=== PATIENT | male | born 1970 | race Caucasian/White ===

== ENCOUNTER 2016-04-23 | Emergency (ER) | payer BC, OTHER | END 2016-04-23 06:12 | disposition home or self-care (01) | DX: I10 Essential (primary) hypertension (principal) ==

== ENCOUNTER 2016-04-28 15:44 | Emergency (ER) | payer OTHER ==
[2016-04-28] MEDS ORDERED: MAG HYDROX/AL HYDROX/SIMETH 30 ML UDC PO STA (16:44)
[2016-04-28] MEDS ORDERED: LIDOCAINE VISCOUS 2% 15 ML UDC MM STA (16:44)
[2016-04-28] MEDS ORDERED: SUCRALFATE 1 GM/10 ML UDC PO STA (16:44)
[2016-04-28] MEDS ORDERED: MAG HYDROX/AL HYDROX/SIMETH 30 ML UDC ONE (16:56)
[2016-04-28] MEDS ORDERED: SUCRALFATE 1 GM/10 ML UDC ONE (16:56)
[2016-04-28] MEDS ORDERED: LIDOCAINE VISCOUS 2% 15 ML UDC MM ONE (16:56)
== END 2016-04-28 17:28 | disposition home or self-care (01) ==
DX: R07.9 Chest pain, unspecified (principal); I10 Essential (primary) hypertension
CPT/HCPCS: 36415; 71010; 80053; 83690; 84484; 85025; 93005; 93010; 99283; 99284; A9270

== ENCOUNTER 2016-05-31 08:12 | Outpatient (CLI) | payer OTHER | END 2016-05-31 08:13 | disposition home or self-care (01) | DX: Q89.2 Congenital malformations of other endocrine glands (principal) ==

== ENCOUNTER 2017-11-25 06:05 | Emergency (ER) | payer OTHER ==
[2017-11-25] MEDS ORDERED: diphenhydrAMINE 25 MG CAPSULE PO STA (06:15)
--- NOTE | 2017-11-25 06:22 | ED Physician Documentation ---
History of Present Illness - Stated complaint Stated Complaint: ALLERGIC REACTION - Chief complaint Chief Complaint: Allergic Rx - History obtained from History obtained from: Patient - History of Present Illness Timing: Today - Additonal information Additional information: Patient is a 47 year old male with no significant past medical history who is presenting to the emergency department for palpitations. patient states that last night he took a niacin containing supplement to try to help him sleep. patient states that in the middle of the night he felt his heart racing. Patient states it went away but he had another episode this morning in the shower. Currently patient is asymptomatic. Review of Systems Ten Systems: 10 systems reviewed and negative Constitutional: denies: Fever, Chills Cardiac: reports: Palpitations. denies: Chest pain / pressure, Pedal edema, Calf pain Respiratory: denies: Dyspnea, Cough, Wheezing GI: denies: Nausea, Vomiting PD PAST MEDICAL HISTORY - Past Medical History Cardiovascular: Hypertension, High cholesterol Respiratory: Sleep apnea, CPAP use Endocrine/Autoimmune: HyPOthyroidism - Past Surgical History Past Surgical History: Yes Ortho: ACL reconstruction, Arthroscopic surgery HEENT: Tonsil/Adenoidectomy - Present Medications Home Medications: Ambulatory Orders Medication Instructions Recorded Confirmed Levothyroxine Sodium [Synthroid] 100 mcg PO DAILY 07/11/13 04/23/16 Testosterone 1 packet TOP DAILY 05/18/15 05/18/15 Hydrochlorothiazide 12.5 mg PO DAILY 04/23/16 04/23/16 Losartan [Cozaar] 75 mg PO DAILY 04/23/16 04/23/16 Magnesium Citrate 200 mg PO DAILY 04/23/16 04/23/16 - Allergies Allergies/Adverse Reactions: Allergies Allergy/AdvReac Type Severity Reaction Status Date / Time Penicillins Allergy hives, Verified 11/25/17 06:09 short of breath testosterone Allergy Unknown Verified 11/25/17 06:09 - Social History Does the pt smoke?: No Smoking Status: Never smoker Does the pt drink ETOH?: No Does the pt have substance abuse?: No - POLST Patient has POLST: No PD ED PE NORMAL - Vitals Vital signs reviewed: Yes - General General: Alert and oriented X 3, No acute distress, Well developed/nourished - HEENT HEENT: Atraumatic, PERRL - Cardiac Cardiac: RRR, No murmur - Respiratory Respiratory: No respiratory distress - Abdomen Abdomen: Soft - Derm Derm: Normal color, Warm and dry, No rash - Neuro Neuro: Alert and oriented X 3, No motor deficit, Normal speech Eye Opening: Spontaneous Motor: Obeys Commands Verbal: Oriented GCS Score: 15 Results - Vitals Vitals: Vital Signs - 24 hr 11/25/17 11/25/17 06:10 07:23 Temperature 36.6 C Heart Rate 86 83 Respiratory 18 18 Rate Blood Pressure 130/84 H 109/67 O2 Saturation 98 100 Oxygen O2 Source Room air - EKG (time done) 0621 Other comments: Other comments (st elevation consistent with pericarditis) - Labs Labs: Laboratory Tests 11/25/17 11/25/17 11/25/17 06:30 06:30 06:30 WBC 4.7 L RBC 4.93 Hgb 15.0 Hct 43.3 MCV 87.7 MCH 30.4 MCHC 34.6 RDW 13.4 Plt Count 256 MPV 7.6 Neut # (Auto) 2.5 Lymph # (Auto) 1.5 [place] # (Auto) 0.5 Eos # (Auto) 0.1 Baso # (Auto) 0.0 Absolute Nucleated RBC 0.00 Nucleated RBC % 0.1 Sodium 136 Potassium 3.9 Chloride 104 Carbon Dioxide 28 Anion Gap 4.0 L BUN 19 Creatinine 0.8 Estimated GFR (MDRD) 103 Glucose 108 H Calcium 9.3 Total Bilirubin 0.5 AST 20 ALT 26 Alkaline Phosphatase 55 Troponin I < 0.04 Total Protein 6.5 L Albumin 3.5 Globulin 3.0 Albumin/Globulin Ratio 1.2 Lipase 26 TSH 11/25/17 06:30 WBC RBC Hgb Hct MCV MCH MCHC RDW Plt Count MPV Neut # (Auto) Lymph # (Auto) [place] # (Auto) Eos # (Auto) Baso # (Auto) Absolute Nucleated RBC Nucleated RBC % Sodium Potassium Chloride Carbon Dioxide Anion Gap BUN Creatinine Estimated GFR (MDRD) Glucose Calcium Total Bilirubin AST ALT Alkaline Phosphatase Troponin I Total Protein Albumin Globulin Albumin/Globulin Ratio Lipase TSH 0.59 PD MEDICAL DECISION MAKING - ED course Complexity details: reviewed old records, reviewed results, re-evaluated patient, considered differential, d/w patient ED course: Patient was seen and examined at bedside. Patient was asymptomatic at the time of evaluation. patient's ekg was abnormal with signs of pericarditis so labs were ordered. Upon re-evaluation patient continued to deny pain. Patient states that he was diagnosed with pericarditis a few weeks ago. patient stated that he had a normal echo and stress test. Patient required no further inpati ent work up and was stable for discharge with outpatient follow up. - Sepsis Event Vital Signs: Vital Signs - 24 hr 11/25/17 11/25/17 06:10 07:23 Temperature 36.6 C Heart Rate 86 83 Respiratory 18 18 Rate Blood Pressure 130/84 H 109/67 O2 Saturation 98 100 Oxygen O2 Source Room air Departure - Departure Disposition: 01 Home, Self Care Clinical Impression: Palpitations Condition: Good Instructions: ED Drug React Adverse Other Follow-Up: Provider,Other [Primary Care Provider] - As Needed Comments: Your diagnostics today are within normal limits. You still have slight ekg changes from your prior pericarditis. Your electrolytes are within normal limits. It was likely and adverse reaction to what you took overnight. If your symptoms become more frequent you should follow up with you heart doctor for possibly a holter monitor. You can return to the emergency department at any time for new, worsening or uncontrollable symptoms. Discharge Date/Time: 11/25/17 07:23
[2017-11-25 06:41] LABS: BASOPHILS % (AUTO) 0.9 %; EOSINOPHILS # (AUTO) 0.1 10^3/uL (0.0-0.7); EOSINOPHILS % (AUTO) 2.9 %; LYMPHOCYTES # (AUTO) 1.5 10^3/uL (1.5-3.5); LYMPHOCYTES % (AUTO) 31.4 %; MEAN CORPUSCULAR HEMOGLOBIN 30.4 pg (27.0-31.0); MEAN CORPUSCULAR HGB CONC 34.6 g/dL (32.0-36.0); MEAN CORPUSCULAR VOLUME 87.7 fL (80.0-94.0); MEAN PLATELET VOLUME 7.6 fL (7.4-11.4); MONOCYTES # (AUTO) 0.5 10^3/uL (0.0-1.0); MONOCYTES % (AUTO) 10.3 %; NEUTROPHILS # (AUTO) 2.5 10^3/uL (1.5-6.6); NEUTROPHILS % (AUTO) 54.5 %; PLT - PLATELET COUNT 256 10^3/uL (130-450); RED BLOOD COUNT 4.93 10^6/uL (4.70-6.10); RED CELL DISTRIBUTION WIDTH 13.4 % (12.0-15.0); WHITE BLOOD COUNT 4.7 x10^3/uL (4.8-10.8)
[2017-11-25 06:55] LABS: ALBUMIN 3.5 g/dL (3.2-5.5); ALBUMIN/GLOBULIN RATIO 1.2 (1.0-2.2); BILIRUBIN,TOTAL 0.5 mg/dL (0.2-1.0); CALCIUM 9.3 mg/dL (8.5-10.3); CREATININE 0.8 mg/dL (0.6-1.2); TOTAL PROTEIN 6.5 g/dL (6.7-8.2)
[2017-11-25 07:24] VITALS: BP 109/67
== END 2017-11-25 07:23 | disposition home or self-care (01) ==
LOC: ED 06:05
DX: R00.2 Palpitations (principal); R94.31 Abnormal electrocardiogram [ECG] [EKG]; I10 Essential (primary) hypertension; E78.00 Pure hypercholesterolemia, unspecified; E03.9 Hypothyroidism, unspecified
CPT/HCPCS: 36415; 80053; 83690; 84443; 84484; 85025; 93005; 99283; A9270

== ENCOUNTER 2018-03-18 18:14 | Emergency (ER) | payer OTHER ==
[2018-03-18 18:19] VITALS: BP 153/91
--- NOTE | 2018-03-18 19:01 | ED Physician Documentation ---
PD HPI FOCAL NEURO - Stated complaint Stated Complaint: VERTIGO/NAUSEA - Chief complaint Chief Complaint: Neuro - History obtained from History obtained from: Patient - History of Present Illness Timing - onset: Today (47-year-old gentleman with history of pericarditis status post complete workup, not bothering him anymore without recurrent chest pain or exercise intolerance presents with vertigo, a sense of spinning that started suddenly while turning his head to look at his car mirror just prior to arrival. He is nauseous but no vomiting. No significant headache.) Review of Systems Constitutional: denies: Fever, Chills, Myalgias Ears: denies: Loss of hearing, Ear pain Nose: denies: Rhinorrhea / runny nose, Congestion Throat: denies: Sore throat PD PAST MEDICAL HISTORY - Past Medical History Cardiovascular: Hypertension, High cholesterol Respiratory: Sleep apnea, CPAP use Endocrine/Autoimmune: HyPOthyroidism - Past Surgical History Past Surgical History: Yes Ortho: ACL reconstruction, Arthroscopic surgery HEENT: Tonsil/Adenoidectomy - Present Medications Home Medications: Ambulatory Orders Medication Instructions Recorded Confirmed Levothyroxine Sodium [Synthroid] 100 mcg PO DAILY 07/11/13 04/23/16 Testosterone 1 packet TOP DAILY 05/18/15 05/18/15 Losartan [Cozaar] 75 mg PO DAILY 04/23/16 04/23/16 Magnesium 1 03/18/18 - Allergies Allergies/Adverse Reactions: Allergies Allergy/AdvReac Type Severity Reaction Status Date / Time Penicillins Allergy hives, Verified 11/25/17 06:09 short of breath testosterone Allergy Unknown Verified 03/18/18 18:19 - Social History Does the pt smoke?: No Smoking Status: Never smoker Does the pt drink ETOH?: No Does the pt have substance abuse?: No - POLST Patient has POLST: No PD ED PE NORMAL - Vitals Vital signs reviewed: Yes - General General: Alert and oriented X 3, No acute distress - HEENT HEENT: PERRL (With mild rightward nystagmus), Ears normal, Pharynx benign - Neck Neck: Supple, no meningeal sign, No bony TTP - Neuro Neuro: Alert and oriented X 3, transitional care nurse 2-12 intact Eye Opening: Spontaneous Motor: Obeys Commands Verbal: Oriented GCS Score: 15 - Psych Psych: Normal mood, Normal affect NIHSS - Time Time: 19:00 - Level of Consciousness Level of consciousness: (0) Alert, Keenly responsive LOC Questions: (0) Answers both Q's correct LOC Commands: (0) Performs both correctly - Gaze Best Gaze: (0) Normal - Visual Visual: (0) No loss - Facial Palsy Facial Palsy: (0) Normal, symmetrical movement - Motor Arms (both separate) Motor Arm (right): (0) No drift Motor Arm (left): (0) No drift - Motor Legs (both separate) Motor Leg (right): (0) No drift Motor Leg (left): (0) No drift - Limb Ataxia Limb Ataxia: (0) Absent - Sensory Sensory: (0) Normal - Best Language Best Language: (0) No aphasia - Dysarthria Dysarthria: (0) Normal - Extinction and Inattention (formally neg Extinction and inattention: (0) No abnormality - Total Score/Results Total Score/Result: 0 Results - Vitals Vitals: Vital Signs - 24 hr 03/18/18 18:16 Temperature 36 C L Heart Rate 67 Respiratory 20 Rate Blood Pressure 153/91 H O2 Saturation 99 Oxygen O2 Source Room air - EKG (time done) 1826 Rate: Rate (enter#) (63) Rhythm: NSR Mobile: Normal Intervals: Normal DC QRS: LVH Ischemia: Other (Diffuse ST elevations consistent with pericarditis) Computer interpretation: Agree with computer PD MEDICAL DECISION MAKING - ED course ED course: 47-year-old gentleman with history Of peripheral vertigo confirmed on examination. An Faby maneuver was done with resolution of his symptoms. Departure - Departure Disposition: 01 Home, Self Care Clinical Impression: Peripheral vertigo involving right ear Condition: Good Record reviewed to determine appropriate education?: Yes Instructions: ED BPV Vertigo Comments: Your blood pressure was elevated today on check into the emergency department. This does not mean that you have hypertension, it is a common phenomenon to come to the emergency department and have elevated blood pressure. I recommend that you see your primary care physician within the week to have it rechecked when you are feeling better.
== END 2018-03-18 19:05 | disposition home or self-care (01) ==
LOC: ED 18:14
DX: H81.391 Other peripheral vertigo, right ear (principal); I51.7 Cardiomegaly; I10 Essential (primary) hypertension; E78.00 Pure hypercholesterolemia, unspecified; E03.9 Hypothyroidism, unspecified
CPT/HCPCS: 93005; 99282; 99283

== ENCOUNTER 2020-07-18 18:22 | Emergency (ER) | payer OTHER ==
--- OUTSIDE RECORDS SUMMARY | 2020-07-18 18:25 | EXTERNAL MEDICAL SUMMARY RPT | Continuity of Care Document ---
:1970 Demographics Phone Unavailable Preferred Language Cypriot Marital Status Unknown Buddhist Affiliation Unknown Race Unknown Ethnic Group Unknown Author Organization [place] Address [address] [phone] Phone Care Team Providers Name Role Phone Monzon Unavailable Unavailable Problems date description facility 20200523 Personal history of urinary calculi [facility] 20200523 Bariatric surgery status [facility] 20200519 Personal history of urinary calculi [facility] 20200519 Low back pain [facility] 20200519 Bariatric surgery [facility] Procedures date description facility 20200701 [facility] 20200523 [facility] 20200519 [facility] Vital Signs date measurement value source 20200701 weight_standard 95.71 lb [id number] weight_metric 43.41 kg 20200701 temperature_standard 98.7 F 20200701 temperature_metric 37.06 C 20200701 respiration_rate 18 /min 20200701 height_standard 70 in [id number] height_metric 177.8 cm [id number] heart_rate 74 /min 20200701 BP_systolic 138 mm[Hg] [id number] BP_diastolic 84 mm[Hg] 20200701 BMI 30.2 kg/m2
--- OUTSIDE RECORDS SUMMARY | 2020-07-18 18:44 | EXTERNAL MEDICAL SUMMARY RPT | Continuity of Care Document ---
:1970 Demographics Phone Unavailable Preferred Language Turkish Marital Status Unknown Adventist Affiliation Unknown Race Unknown Ethnic Group Unknown Author Organization [place] Address [address] [phone] Phone Care Team Providers Name Role Phone Monzon Unavailable Unavailable Problems date description facility 20200523 Personal history of urinary calculi Is [facility] 20200523 Bariatric surgery status [facility] 20200519 Personal history of urinary calculi [facility] 20200519 Low back pain [facility] 20200519 Bariatric surgery [facility] Procedures date description facility 20200701 [facility] 20200523 [facility] 20200519 [facility] Vital Signs date measurement value source 20200701 weight_standard 95.71 lb [id number] weight_metric 43.41 kg 20200701 temperature_standard 98.7 F 20200701 temperature_metric 37.06 C 20200701 respiration_rate 18 /min 20200701 height_standard 70 in [id number] height_metric 177.8 cm [id number] heart_rate 74 /min 20200701 BP_systolic 138 mm[Hg] [id number] BP_diastolic 84 mm[Hg] 20200701 BMI 30.2 kg/m2
[2020-07-18 18:55] LABS: BASOPHILS % (AUTO) 0.4 %; EOSINOPHILS # (AUTO) 0.1 10^3/uL (0.0-0.7); EOSINOPHILS % (AUTO) 0.8 %; HCT - HEMATOCRIT 46.1 % (42.0-52.0); HGB - HEMOGLOBIN 15.7 g/dL (14.0-18.0); LYMPHOCYTES # (AUTO) 1.5 10^3/uL (1.5-3.5); LYMPHOCYTES % (AUTO) 18.5 %; MEAN CORPUSCULAR HEMOGLOBIN 30.1 pg (27.0-31.0); MEAN CORPUSCULAR HGB CONC 34.1 g/dL (32.0-36.0); MEAN CORPUSCULAR VOLUME 88.3 fL (80.0-94.0); MEAN PLATELET VOLUME 9.5 fL (7.4-11.4); MONOCYTES # (AUTO) 0.5 10^3/uL (0.0-1.0); MONOCYTES % (AUTO) 5.7 %; NEUTROPHILS # (AUTO) 5.9 10^3/uL (1.5-6.6); NEUTROPHILS % (AUTO) 74.3 %; PLT - PLATELET COUNT 280 10^3/uL (130-450); RED BLOOD COUNT 5.22 10^6/uL (4.70-6.10); RED CELL DISTRIBUTION WIDTH 12.2 % (12.0-15.0); WHITE BLOOD COUNT 7.9 x10^3/uL (4.8-10.8)
[2020-07-18] MEDS ORDERED: DEXAMETHASONE 10 MG/ML VIAL IVP STA (19:03)
[2020-07-18] MEDS ORDERED: KETOROLAC 30 MG/ML VIAL IVP STA (19:03)
--- NOTE | 2020-07-18 19:03 | XRAY Report ---
PROCEDURE: Chest 1 View X-Ray INDICATIONS: Chest pain TECHNIQUE: One view of the chest was acquired. COMPARISON: None FINDINGS: Surgical changes and devices: None. Lungs and pleura: No pleural effusions or pneumothorax. Lungs are clear. Mediastinum: Mediastinal contours appear normal. Heart size is normal. Bones and chest wall: No suspicious bony lesions. Overlying soft tissues appear unremarkable. IMPRESSION: No acute process. Reviewed by: Pat Lacey MD on 07/18/2020 7:01 PM PDT Approved by: Pat Lacey MD on 07/18/2020 7:01 PM PDT Station ID: [id number]
[2020-07-18 19:07] LABS: ALBUMIN/GLOBULIN RATIO 1.1 (1.0-2.2); BILIRUBIN,TOTAL 0.4 mg/dL (0.2-1.0); CALCIUM 9.7 mg/dL (8.5-10.3); CREATININE 0.8 mg/dL (0.6-1.2); TOTAL PROTEIN 7.7 g/dL (6.7-8.2)
--- NOTE | 2020-07-18 19:56 | ED Physician Documentation ---
PD HPI CHEST PAIN - Stated complaint Stated Complaint: CP/PRESSURE/LT ARM NUMBNESS - Chief complaint Chief Complaint: Cardiac - History obtained from History obtained from: Patient - History of Present Illness Timing - onset: Today Timing - onset during: Rest Timing - duration: Hours Timing - details: Gradual onset, Still present Quality: Pressure, Tightness Location: Right chest Radiation: Left upper extremity Improved by: Rest Worsened by: Inspiration, Movement, Palpation Associated symptoms: Shortness of air. No: Diaphoresis, Nausea, Vomiting, Feeling faint / dizzy, General Weakness, Palpitations, Cough Similar symptoms before: Diagnosis (pericarditis) Recently seen: Not recently seen Review of Systems Constitutional: denies: Fever, Chills Eyes: denies: Decreased vision Ears: denies: Ear pain Nose: denies: Rhinorrhea / runny nose, Congestion Throat: denies: Sore throat Cardiac: reports: Chest pain / pressure. denies: Palpitations, Pedal edema, C lisa pain Respiratory: denies: Dyspnea, Cough, Wheezing GI: denies: Abdominal Pain, Nausea, Vomiting : denies: Dysuria, Frequency Skin: denies: Rash, Abrasion (s) Musculoskeletal: denies: Back pain, Extremity pain Neurologic: denies: Generalized weakness, Focal weakness, Numbness PD PAST MEDICAL HISTORY - Past Medical History Cardiovascular: Hypertension, High cholesterol Respiratory: Sleep apnea, CPAP use Endocrine/Autoimmune: HyPOthyroidism - Past Surgical History Past Surgical History: Yes Ortho: ACL reconstruction, Arthroscopic surgery HEENT: Tonsil/Adenoidectomy - Present Medications Home Medications: Ambulatory Orders Medication Instructions Recorded Confirmed Levothyroxine Sodium [Synthroid] 100 mcg PO DAILY 07/11/13 04/23/16 Testosterone 1 packet TOP DAILY 05/18/15 05/18/15 Losartan [Cozaar] 75 mg PO DAILY 04/23/16 04/23/16 Magnesium 1 03/18/18 - Allergies Allergies/Adverse Reactions: Allergies Allergy/AdvReac Type Severity Reaction Status Date / Time Penicillins Allergy hives, Verified 07/18/20 18:32 short of breath testosterone Allergy Unknown Verified 07/18/20 18:32 - Social History Does the pt smoke?: No Smoking Status: Never smoker Does the pt drink ETOH?: No Does the pt have substance abuse?: No - POLST Patient has POLST: No PD ED PE NORMAL - Vitals Vital signs reviewed: Yes (hypertensive ) - General General: Alert and oriented X 3, No acute distress, Well developed/nourished - HEENT HEENT: Atraumatic, PERRL, EOMI - Neck Neck: Supple, no meningeal sign, No bony TTP - Cardiac Cardiac: RRR, No murmur - Respiratory Respiratory: No respiratory distress, Clear bilaterally, Other (There is tenderness to the chest wall at the costal sternal angle on the lower end of the sternum that reproduces the pain the patient is experiencing.) - Abdomen Abdomen: Soft, Non tender - Back Back: No CVA TTP, No spinal TTP - Derm Derm: Normal color, Warm and dry, No rash - Extremities Extremities: No deformity, No edema - Neuro Neuro: Alert and oriented X 3, bone grinder 2-12 intact, No motor deficit, No sensory deficit, Normal speech Eye Opening: Spontaneous Motor: Obeys Commands Verbal: Oriented GCS Score: 15 - Psych Psych: Normal mood, Normal affect Results - Vitals Vitals: Vital Signs - 24 hr 07/18/20 07/18/20 07/18/20 18:32 18:35 20:34 Temperature 37.0 C 37 C Heart Rate 69 69 66 Respiratory 16 16 16 Rate Blood Pressure 162/82 H 162/82 H 135/78 H O2 Saturation 100 100 95 Oxygen O2 Source Room air - EKG (time done) 1827 Rate: Rate (enter#) (81) Rhythm: NSR QRS: LVH Computer interpretation: Agree with computer - Labs Labs: Laboratory Tests 07/18/20 07/18/20 07/18/20 18:46 18:46 18:46 WBC 7.9 RBC 5.22 Hgb 15.7 Hct 46.1 MCV 88.3 MCH 30.1 MCHC 34.1 RDW 12.2 Plt Count 280 MPV 9.5 Neut # (Auto) 5.9 Lymph # (Auto) 1.5 [place] # (Auto) 0.5 Eos # (Auto) 0.1 Baso # (Auto) 0.0 Absolute Nucleated RBC 0.00 Nucleated RBC % 0.0 Sodium 138 Potassium 4.0 Chloride 99 L Carbon Dioxide 31 Anion Gap 8.0 BUN 17 Creatinine 0.8 Estimated GFR (MDRD) 102 Glucose 100 Calcium 9.7 Total Bilirubin 0.4 AST 22 ALT 28 Alkaline Phosphatase 76 Troponin I High Sens 6.5 Total Protein 7.7 Albumin 4.0 Globulin 3.7 Albumin/Globulin Ratio 1.1 Lipase 24 - Rads (name of study) chest Radiology: Prelim report reviewed (Impression: No acute process.), EMP read indepedently, See rad report PD MEDICAL DECISION MAKING - ED course Complexity details: reviewed old records, reviewed results, re-evaluated patient, considered differential, d/w patient ED course: 49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 He has a prior history of pericarditis and this has resolved. Today he has chest wall tenderness that reproduces the symptoms he is having and he has a negative cardiovascular work-up including a chest x-ray electrocardiogram and cardiac enzymes. He has had symptoms since 2 PM and he notes a recent takedown that was about 2 weeks ago he did not think he injured himself in the chest at that time.The patient is treated with dexamethasone and Toradol intravenously here in the emergency department with improvement in symptoms. Departure - Departure Disposition: 01 Home, Self Care Clinical Impression: Chest wall pain Condition: Stable Instructions: ED Chest Pain Costochondritis Follow-Up: Monica Monzon ND [Primary Care Provider] - Discharge Date/Time: 07/18/20 20:40
[2020-07-18 20:35] VITALS: BP 135/78
== END 2020-07-18 20:40 | disposition home or self-care (01) ==
LOC: ED 18:22
DX: R07.89 Other chest pain (principal); Z86.79 Personal history of other diseases of the circulatory system; I10 Essential (primary) hypertension
CPT/HCPCS: 36415; 80053; 83690; 84484; 85025; 93005; 96374; 96375; 99284